=== PATIENT | male | born 1950 | race Caucasian/White ===

== ENCOUNTER 2017-08-20 15:40 | Inpatient (IN) | payer OTHER ==
[~2017-08-20] VITALS: Ht 188 cm; Wt 110.4 kg
[~2017-08-20 15:40] MED LIST: ALDACTONE25 MG PO; ASCORBIC ACID500 M4 PO; Ascorbic Acid,Ester- PO; BACITRACIN28.4 GM TP; CALCIUM 500-VI1 EACH PO; CELEBREX200 MG PO; COLCRYS0.6 MG PO; COREG12.5 M1 PO; COREG25 M1 PO; COUMADIN2 MG PO; DULCOLAX5 MG PO; FEOSOL325 MG PO; FLECTOR 1.3%1 PATC1 TD; FOLIC ACID1 MG PO; LOW DOSE ASPIRI81 M1 PO; MIRALAX17 GM PO; MS CONTIN,ORAMO60 MG PO; NEURONTIN300 MG PO; NEURONTIN400 MG PO; NICODERM CQ1 EAC2 TD; PROTONIX40 MG PO; ROXICODONE5 MG PO; SENOKOT S,PE1 TABLET PO; THERAGRAN1 TABLET PO; TYLENOL REGULA325 MG PO; ZESTRIL20 MG PO; ZOCOR40 MG PO; ZYLOPRIM300 MG PO; Zestril,Prinivil PO
[2017-08-20 16:39] VITALS: BP 125/67
[2017-08-20 22:51] VITALS: BP 112/65
[2017-08-21 05:47] VITALS: BP 131/68
[2017-08-21 05:48] LABS: HEMATOCRIT 28.7 % (38.0-50.0); HEMOGLOBIN 8.9 G/DL (12.5-16.6); MCH 28.7 PG (29.0-34.0); MCV 92.6 FL (86-99); PLATELET COUNT 212 K/uL (156-360); RBC DIS.WIDTH-CV 17.1 % (11.8-14.6); WHITE BLOOD COUNT 6.6 K/uL (4.1-10.2)
[2017-08-21 06:31] LABS: ALBUMIN 3.1 G/DL (3.2-4.8); ALKALINE PHOSPHATASE 76 IU/L (3-129); ALT (GPT) 8 IU/L (3-49); AST (GOT) 13 IU/L (2-34); CHLORIDE 101 MEQ/L (99-109); CREATININE 1.3 MG/DL (0.6-1.3); GFR ESTIMATE (CALCULATED) 59 mL/min/ (58.99-99999); GLUCOSE 101 mg/dL (70-99); POTASSIUM 4.4 MEQ/L (3.7-5.4); SODIUM 136 MEQ/L (136-147); TOTAL BILIRUBIN 0.6 MG/DL (0.0-1.0); TOTAL PROTEIN 5.8 G/DL (6.4-8.3); UREA NITROGEN (BUN) 25 mg/dL (9-23)
[2017-08-21 15:15] VITALS: BP 140/74
[2017-08-22 04:51] VITALS: BP 146/66
[2017-08-22 14:58] VITALS: BP 101/62
[2017-08-23 05:35] VITALS: BP 129/75
[2017-08-23 15:17] VITALS: BP 117/70
[2017-08-24 06:06] VITALS: BP 125/71
[2017-08-24 16:03] VITALS: BP 121/72
[2017-08-25 05:43] VITALS: BP 132/73
[2017-08-25 15:39] VITALS: BP 114/65
[2017-08-26 04:42] VITALS: BP 138/70
[2017-08-26 15:03] VITALS: BP 134/73
[2017-08-27 05:51] VITALS: BP 147/79
[2017-08-27 15:17] VITALS: BP 124/75
[2017-08-28 06:13] VITALS: BP 145/82
[2017-08-28 15:27] VITALS: BP 120/66
[2017-08-29 05:47] VITALS: BP 145/70
[2017-08-29 15:46] VITALS: BP 126/82
[2017-08-30 05:51] VITALS: BP 127/75
[2017-08-30 06:54] LABS: HEMATOCRIT 33.2 % (38.0-50.0); HEMOGLOBIN 10.3 G/DL (12.5-16.6); MCH 28.1 PG (29.0-34.0); MCV 90.7 FL (86-99); PLATELET COUNT 253 K/uL (156-360); RED BLOOD COUNT 3.66 M/uL (4.00-5.50); WHITE BLOOD COUNT 7.2 K/uL (4.1-10.2)
[2017-08-30 07:17] LABS: ALBUMIN 3.6 G/DL (3.2-4.8); ALKALINE PHOSPHATASE 80 IU/L (3-129); ALT (GPT) 10 IU/L (3-49); AST (GOT) 13 IU/L (2-34); CHLORIDE 100 MEQ/L (99-109); CREATININE 1.5 MG/DL (0.6-1.3); GFR ESTIMATE (CALCULATED) 50 mL/min/ (58.99-99999); GLUCOSE 96 mg/dL (70-99); POTASSIUM 4.7 MEQ/L (3.7-5.4); SODIUM 131 MEQ/L (136-147); TOTAL BILIRUBIN 0.7 MG/DL (0.0-1.0); TOTAL PROTEIN 7.3 G/DL (6.4-8.3); UREA NITROGEN (BUN) 27 mg/dL (9-23)
[2017-08-30 15:29] VITALS: BP 129/69
[2017-08-30] MEDS ORDERED: TRAMADOL HCL50 MG PO (23:04)
[2017-08-30] MEDS ORDERED: COREG25 M1 PO (23:05)
[2017-08-30] MEDS ORDERED: DULERA 100 MCG/13 GM IH (23:05)
[2017-08-30] MEDS ORDERED: VENTOLIN HFA18 GM IH (23:05)
[2017-08-30] MEDS ORDERED: SPIRIVA RESPIMAT4 GM IH (23:05)
[2017-08-30] MEDS ORDERED: XARELTO20 MG PO (23:05)
[2017-08-31 05:25] VITALS: BP 127/79
[2017-08-31 07:09] LABS: CHLORIDE 103 MEQ/L (99-109); CREATININE 1.4 MG/DL (0.6-1.3); GFR ESTIMATE (CALCULATED) 54 mL/min/ (58.99-99999); GLUCOSE 101 mg/dL (70-99); POTASSIUM 4.9 MEQ/L (3.7-5.4); SODIUM 134 MEQ/L (136-147); UREA NITROGEN (BUN) 28 mg/dL (9-23)
== END 2017-08-31 12:20 | disposition home health service (06) | DRG 560 ==
LOC: 3WEST 15:40 → ENPENDDIS 08-31 → 3WEST 08-31 12:20
PROVIDERS: Physical Medicine & Rehabilitation Pain Medicine
PROC: F07M0ZZ Range of Motion and Joint Mobility Treatment of Musculoskeletal System - Whole Body (ICD-10-PCS; principal; 2017-08-20)
DX: Z47.81 Encounter for orthopedic aftercare following surgical amputation (principal); Z89.511 Acquired absence of right leg below knee; R26.9 Unspecified abnormalities of gait and mobility; I13.0 Hypertensive heart and chronic kidney disease with heart failure and stage 1 through stage 4 chronic kidney disease, or unspecified chronic kidney disease; I50.30 Unspecified diastolic (congestive) heart failure; N18.9 Chronic kidney disease, unspecified; E87.1 Hypo-osmolality and hyponatremia; I42.9 Cardiomyopathy, unspecified; J44.9 Chronic obstructive pulmonary disease, unspecified; D62 Acute posthemorrhagic anemia; E78.5 Hyperlipidemia, unspecified; I70.209 Unspecified atherosclerosis of native arteries of extremities, unspecified extremity; M10.9 Gout, unspecified; Z95.810 Presence of automatic (implantable) cardiac defibrillator; Z87.891 Personal history of nicotine dependence; Z79.02 Long term (current) use of antithrombotics/antiplatelets; Z79.82 Long term (current) use of aspirin; Z87.01 Personal history of pneumonia (recurrent)
CPT/HCPCS: 71045; 80048; 80053; 85027; 94640; 94640 76; 97110 GO; 97530 GP; 99202

== ENCOUNTER 2017-09-13 10:04 | Inpatient (IN) | payer OTHER ==
[~2017-09-13] VITALS: Ht 188 cm; Wt 115.5 kg
[~2017-09-13 10:04] MED LIST changes: +DULERA 100 MCG/13 GM IH; +SPIRIVA RESPIMAT4 GM IH; +TRAMADOL HCL50 MG PO; +VENTOLIN HFA18 GM IH; +XARELTO20 MG PO
[2017-09-13 15:22] VITALS: BP 157/90
[2017-09-13] MEDS ORDERED: PRAVACHOL40 MG PO (16:37)
[2017-09-13] MEDS ORDERED: MICRO-K10 ME2 PO (16:39)
[2017-09-13] MEDS ORDERED: AMOX TR-K CLV1 EAC4 PO (16:40)
[2017-09-13] MEDS ORDERED: NORVASC10 MG PO (16:40)
[2017-09-13] MEDS ORDERED: FLORASTOR250 MG PO (16:41)
[2017-09-13] MEDS ORDERED: WELLBUTRIN SR150 MG PO (16:47)
[2017-09-13] MEDS ORDERED: NEURONTIN100 MG PO (16:48)
[2017-09-13] MEDS ORDERED: PROTONIX40 MG PO (17:12)
[2017-09-14 00:28] VITALS: BP 142/87
[2017-09-14 05:22] VITALS: BP 140/88
[2017-09-14 05:33] LABS: HEMATOCRIT 25.8 % (38.0-50.0); HEMOGLOBIN 8.1 G/DL (12.5-16.6); MCH 28.7 PG (29.0-34.0); MCHC 31.4 G/DL (30.0-36.0); MCV 91.5 FL (86-99); PLATELET COUNT 188 K/uL (156-360); RBC DIS.WIDTH-CV 17.2 % (11.8-14.6); RBC DIS.WIDTH-SD 57.1 % (39-53); RED BLOOD COUNT 2.82 M/uL (4.00-5.50)
[2017-09-14 05:54] LABS: ALBUMIN 2.9 G/DL (3.2-4.8); ALKALINE PHOSPHATASE 78 IU/L (3-129); ALT (GPT) 9 IU/L (3-49); AST (GOT) 15 IU/L (2-34); CHLORIDE 107 MEQ/L (99-109); CREATININE 1.2 MG/DL (0.6-1.3); GFR ESTIMATE (CALCULATED) > 59 mL/min/ (58.99-99999); GLUCOSE 95 mg/dL (70-99); POTASSIUM 3.8 MEQ/L (3.7-5.4); SODIUM 140 MEQ/L (136-147); TOTAL BILIRUBIN 0.6 MG/DL (0.0-1.0); TOTAL PROTEIN 5.6 G/DL (6.4-8.3); UREA NITROGEN (BUN) 10 mg/dL (9-23)
[2017-09-14 15:22] VITALS: BP 127/64
[2017-09-15 05:19] VITALS: BP 138/75
[2017-09-15 15:03] VITALS: BP 136/70
[2017-09-16 06:20] VITALS: BP 138/83
[2017-09-16 16:12] VITALS: BP 124/84
[2017-09-17 05:21] VITALS: BP 134/72
[2017-09-17 15:19] VITALS: BP 134/67
[2017-09-18 04:11] VITALS: BP 131/87
[2017-09-18 15:21] VITALS: BP 127/75
[2017-09-19 05:03] VITALS: BP 138/73
[2017-09-19 15:30] VITALS: BP 139/80
[2017-09-20 05:36] VITALS: BP 118/56
[2017-09-20 05:56] LABS: BASOPHIL (%) 0.7 % (0-1); EOSINOPHIL (%) 0.7 % (0-5); HEMATOCRIT 30.2 % (38.0-50.0); HEMOGLOBIN 9.5 G/DL (12.5-16.6); IMMATURE GRANULOCYTE (%) 0.6 % (0.0-0.7); LYMPHOCYTE (%) 17.2 % (15-42); LYMPHOCYTE COUNT 0.9 K/uL (1.0-2.8); MCHC 31.5 G/DL (30.0-36.0); MCV 92.1 FL (86-99); MONOCYTE (%) 6.5 % (3-12); MONOCYTE COUNT 0.4 K/uL (0-0.8); NEUTROPHIL (%) 74.3 % (45-76); RBC DIS.WIDTH-CV 17.4 % (11.8-14.6); RBC DIS.WIDTH-SD 58.6 % (39-53); RED BLOOD COUNT 3.28 M/uL (4.00-5.50); WHITE BLOOD COUNT 5.4 K/uL (4.1-10.2)
[2017-09-20 05:57] LABS: PLATELET COUNT 312 K/uL (156-360)
[2017-09-20 06:20] LABS: ALBUMIN 3.4 G/DL (3.2-4.8); ALKALINE PHOSPHATASE 87 IU/L (3-129); ALT (GPT) 6 IU/L (3-49); AST (GOT) 14 IU/L (2-34); CHLORIDE 104 MEQ/L (99-109); CREATININE 1.3 MG/DL (0.6-1.3); GFR ESTIMATE (CALCULATED) 59 mL/min/ (58.99-99999); GLUCOSE 99 mg/dL (70-99); SODIUM 138 MEQ/L (136-147); TOTAL BILIRUBIN 0.5 MG/DL (0.0-1.0)
[2017-09-20 06:21] LABS: TOTAL PROTEIN 6.5 G/DL (6.4-8.3); UREA NITROGEN (BUN) 23 mg/dL (9-23)
[2017-09-20 15:33] VITALS: BP 130/78
[2017-09-21 05:13] VITALS: BP 123/82
[2017-09-21 15:15] VITALS: BP 145/84
[2017-09-22 04:22] VITALS: BP 130/69
[2017-09-22 15:50] VITALS: BP 141/79
[2017-09-23 05:31] VITALS: BP 149/65
[2017-09-23 15:23] VITALS: BP 138/86
[2017-09-24 05:10] VITALS: BP 138/80
[2017-09-24 15:42] VITALS: BP 121/63
[2017-09-24 17:02] VITALS: BP 141/77
[2017-09-25 05:38] VITALS: BP 147/90
[2017-09-25 15:47] VITALS: BP 130/76
[2017-09-26 05:18] VITALS: BP 139/90
[2017-09-26 14:23] VITALS: BP 123/75
[2017-09-27 05:20] VITALS: BP 104/60; BP 125/68
[2017-09-27 15:39] VITALS: BP 125/83
[2017-09-28 04:55] VITALS: BP 133/88
[2017-09-28 15:17] VITALS: BP 129/74
[2017-09-29 04:25] VITALS: BP 117/65
[2017-09-29 15:31] VITALS: BP 125/76
[2017-09-30 05:02] VITALS: BP 131/92
[2017-09-30 16:02] VITALS: BP 128/80
[2017-10-01 05:21] VITALS: BP 129/73
[2017-10-01 15:12] VITALS: BP 120/70
[2017-10-02 05:58] VITALS: BP 110/65
[2017-10-02 15:07] VITALS: BP 124/76
[2017-10-03 05:34] VITALS: BP 119/64
[2017-10-03 15:48] VITALS: BP 136/86
[2017-10-04 05:24] VITALS: BP 122/76
[2017-10-04 07:07] LABS: HEMATOCRIT 34.9 % (38.0-50.0); HEMOGLOBIN 11.2 G/DL (12.5-16.6); MCH 28.9 PG (29.0-34.0); MCHC 32.1 G/DL (30.0-36.0); MCV 89.9 FL (86-99); RBC DIS.WIDTH-SD 55.5 % (39-53); RED BLOOD COUNT 3.88 M/uL (4.00-5.50); WHITE BLOOD COUNT 6.6 K/uL (4.1-10.2)
[2017-10-04 07:16] LABS: ALBUMIN 3.8 G/DL (3.2-4.8); ALKALINE PHOSPHATASE 71 IU/L (3-129); ALT (GPT) 10 IU/L (3-49); AST (GOT) 13 IU/L (2-34); CHLORIDE 102 MEQ/L (99-109); CREATININE 1.4 MG/DL (0.6-1.3); GFR ESTIMATE (CALCULATED) 54 mL/min/ (58.99-99999); GLUCOSE 104 mg/dL (70-99); POTASSIUM 4.8 MEQ/L (3.7-5.4); SODIUM 136 MEQ/L (136-147); TOTAL BILIRUBIN 0.6 MG/DL (0.0-1.0); TOTAL PROTEIN 6.5 G/DL (6.4-8.3); UREA NITROGEN (BUN) 40 mg/dL (9-23)
[2017-10-04 07:55] LABS: PLATELET COUNT 167 K/uL (156-360)
[2017-10-04 14:46] VITALS: BP 133/79
[2017-10-05 05:23] VITALS: BP 136/81
[2017-10-05] MEDS ORDERED: DULERA 100 MCG/13 GM IH (14:04)
[2017-10-05] MEDS ORDERED: PRAVACHOL40 MG PO (14:04)
[2017-10-05] MEDS ORDERED: SPIRIVA RESPIMAT4 GM IH (14:04)
[2017-10-05] MEDS ORDERED: VENTOLIN HFA18 GM IH (14:04)
== END 2017-10-05 14:30 | disposition home health service (06) | DRG 945 ==
LOC: 3WEST 10:04 → ENRESERV 10:04 → 3WEST 15:00 → ENPENDDIS 10-05 → 3WEST 10-05 14:30
PROVIDERS: Physical Medicine & Rehabilitation Pain Medicine; Psychiatry & Neurology Neurology
PROC: F07M0ZZ Range of Motion and Joint Mobility Treatment of Musculoskeletal System - Whole Body (ICD-10-PCS; principal; 2017-09-13)
PROC: 0HDHXZZ Extraction of Right Upper Leg Skin, External Approach (ICD-10-PCS; 2017-09-16)
DX: R53.81 Other malaise (principal); I12.9 Hypertensive chronic kidney disease with stage 1 through stage 4 chronic kidney disease, or unspecified chronic kidney disease; N18.9 Chronic kidney disease, unspecified; D50.9 Iron deficiency anemia, unspecified; M10.9 Gout, unspecified; J44.1 Chronic obstructive pulmonary disease with (acute) exacerbation; E78.00 Pure hypercholesterolemia, unspecified; R26.9 Unspecified abnormalities of gait and mobility; Z89.511 Acquired absence of right leg below knee; Z48.1 Encounter for planned postprocedural wound closure; E78.5 Hyperlipidemia, unspecified; J44.9 Chronic obstructive pulmonary disease, unspecified; K21.9 Gastro-esophageal reflux disease without esophagitis; G89.18 Other acute postprocedural pain; I42.9 Cardiomyopathy, unspecified; I49.3 Ventricular premature depolarization; T87.81 Dehiscence of amputation stump; J18.9 Pneumonia, unspecified organism; E66.9 Obesity, unspecified; Z95.810 Presence of automatic (implantable) cardiac defibrillator; Z68.32 Body mass index [BMI] 32.0-32.9, adult; T87.40 Infection of amputation stump, unspecified extremity; K59.00 Constipation, unspecified; J44.0 Chronic obstructive pulmonary disease with (acute) lower respiratory infection; Y83.5 Amputation of limb(s) as the cause of abnormal reaction of the patient, or of later complication, without mention of misadventure at the time of the procedure; I73.9 Peripheral vascular disease, unspecified; I07.1 Rheumatic tricuspid insufficiency
CPT/HCPCS: 71045; 71046; 80053; 85025; 85027; 87070; 87075; 87205; 87493; 94060; 94640 76; 94726; 94729; 97110 GO; 97530 GP; 99202; J7512